=== PATIENT | male | born 1995 | race Caucasian/White ===

== ENCOUNTER 2020-03-01 17:15 | Emergency (ER) | payer SELFPAY ==
[~2020-03-01] VITALS: Ht 177.8 cm; Wt 77.3 kg
[~2020-03-01 17:15] MED LIST: BENZ1TAB10 PO; PALI234D IM; PALI3 PO
[2020-03-01] MEDS ORDERED: OLAN10TA3 PO (17:52)
[2020-03-01 18:10] LABS: BASOPHILS % (AUTO) 0.4 % (0.0-2.0); EOSINOPHILS % (AUTO) 0.2 % (1.0-6.0); HEMATOCRIT 45.8 % (41-53); HEMOGLOBIN 14.8 g/dL (13.5-17.5); LYMPHOCYTES % (AUTO) 15.9 % (22.0-44.0); MEAN CORPUSCULAR HGB CONC 32.2 G/dL (31.0-37.0); MEAN CORPUSCULAR VOLUME 87 fL (80-100); MONOCYTES # (AUTO) 0.8 K/uL (0.1-1.0); MONOCYTES % (AUTO) 6.3 % (2.0-9.0); NEUTROPHILS # (AUTO) 9.5 K/uL (1.8-7.7); NEUTROPHILS % (AUTO) 77.2 % (40.0-70.0); PLATELET COUNT (AUTO) 224 K/uL (150-450); RED BLOOD CELL COUNT(AUTO) 5.26 MIL/uL (4.50-5.90); RED CELL DISTRIBUTION WIDTH 13.2 % (11.5-14.5)
[2020-03-01 18:24] LABS: ANION GAP 10 mmol/L (8-16); CALCIUM, TOTAL 9.2 mg/dL (8.8-10.5); CARBON DIOXIDE 27 mmol/L (22-29); CHLORIDE 106 mmol/L (98-107); CREATININE 0.85 mg/dL (0.60-1.30); GLOMERULAR FILTR. RATE CALC > 60 mL/min (>60); GLUCOSE,RANDOM 98 mg/dL (70-110); POTASSIUM 3.8 mmol/L (3.5-5.1); SODIUM SERUM 143 mmol/L (136-145); UREA NITROGEN, BLOOD 10 mg/dL (7-18)
[2020-03-01 18:30] LABS: ALANINE AMINOTRANSFERASE 20 U/L (12-78); ALBUMIN 4.1 g/dL (3.4-5.0); ALKALINE PHOSPHATASE 65 U/L (46-116); ASPARTATE AMINOTRANSFERASE 14 U/L (15-37); BILIRUBIN,TOTAL 0.2 mg/dL (0.1-1.0); TOTAL PROTEIN, SERUM 7.4 g/dL (6.4-8.2)
[2020-03-01] MEDS ORDERED: LORazepam 1 MG TABLET PO ONE (19:45)
[2020-03-01] MEDS ORDERED: HALOPERIDOL 5 MG TABLET PO ONE (19:45)
[2020-03-01 19:55] LABS: AMPHET/METH SCREEN,URINE NEGATIVE (NEGATIVE); BARBITURATE SCREEN, URINE NEGATIVE (NEGATIVE); BENZODIAZEPINES SCREEN,URINE NEGATIVE (NEGATIVE); CANNABINOID SCREEN,URINE NEGATIVE (NEGATIVE); COCAINE SCREEN,URINE NEGATIVE (NEGATIVE); METHADONE SCREEN, URINE NEGATIVE (NEGATIVE); OPIATE SCREEN,URINE NEGATIVE (NEGATIVE)
[2020-03-01 19:57] LABS: PHENCYCLIDINE SCREEN,URINE NEGATIVE (NEGATIVE)
[2020-03-01 21:00] VITALS: BP 141/75
== END 2020-03-01 21:48 | disposition home or self-care (01) ==
LOC: EMS 17:15
DX: F20.9 Schizophrenia, unspecified (principal); F17.210 Nicotine dependence, cigarettes, uncomplicated; Z79.899 Other long term (current) drug therapy
CPT/HCPCS: 36415; 80053; 80307; 85025; 99284; G0480

== ENCOUNTER 2021-01-06 17:33 | Inpatient (IN) | payer MEDICAID, OTHER ==
[~2021-01-06] VITALS: Ht 177.8 cm; Wt 76.2 kg
[~2021-01-06 17:33] MED LIST changes: +OLAN10TA3 PO; -PALI3 PO; +PALI3TAB14 PO
[2021-01-06] MEDS ORDERED: FLUORESCEIN SODIUM 1 MG STRIP OD ONE (18:45)
[2021-01-06] MEDS ORDERED: PROPARACAINE HCL 0.5% 15 ML OPHTHALMIC SOLUTION OU ONE (18:45)
[2021-01-06] MEDS ORDERED: ERYTHROMYCIN 0.5% 3.5 GM TUBE OPHTHALMIC OINTMENT OU ONE (19:15)
[2021-01-06 19:48] LABS: AMPHET/METH SCREEN,URINE NEGATIVE (NEGATIVE); BARBITURATE SCREEN, URINE NEGATIVE (NEGATIVE); BENZODIAZEPINES SCREEN,URINE NEGATIVE (NEGATIVE); CANNABINOID SCREEN,URINE NEGATIVE (NEGATIVE); COCAINE SCREEN,URINE NEGATIVE (NEGATIVE); METHADONE SCREEN, URINE NEGATIVE (NEGATIVE); OPIATE SCREEN,URINE NEGATIVE (NEGATIVE); PHENCYCLIDINE SCREEN,URINE NEGATIVE (NEGATIVE)
[2021-01-06] MEDS ORDERED: OLANZapine 5 MG TABLET PO ONE (20:00)
[2021-01-06] MEDS ORDERED: LORazepam 2 MG TABLET PO ONE (20:00)
[2021-01-06 20:20] LABS: BASOPHILS % (AUTO) 0.4 % (0.0-2.0); EOSINOPHILS % (AUTO) 0.2 % (1.0-6.0); HEMATOCRIT 45.2 % (41-53); HEMOGLOBIN 15.2 g/dL (13.5-17.5); LYMPHOCYTES # (AUTO) 1.7 K/uL (1.0-4.8); LYMPHOCYTES % (AUTO) 17.5 % (22.0-44.0); MEAN CORPUSCULAR HGB CONC 33.6 G/dL (31.0-37.0); MEAN CORPUSCULAR VOLUME 86 fL (80-100); MONOCYTES # (AUTO) 0.6 K/uL (0.1-1.0); MONOCYTES % (AUTO) 5.8 % (2.0-9.0); NEUTROPHILS # (AUTO) 7.4 K/uL (1.8-7.7); NEUTROPHILS % (AUTO) 76.1 % (40.0-70.0); PLATELET COUNT (AUTO) 262 K/uL (150-450); RED BLOOD CELL COUNT(AUTO) 5.23 MIL/uL (4.50-5.90); RED CELL DISTRIBUTION WIDTH 13.6 % (11.5-14.5)
[2021-01-06 20:26] LABS: ANION GAP 8 mmol/L (8-16); CALCIUM, TOTAL 9.2 mg/dL (8.8-10.5); CARBON DIOXIDE 29 mmol/L (22-29); CHLORIDE 101 mmol/L (98-107); GLOMERULAR FILTR. RATE CALC > 60 mL/min (>60); GLUCOSE,RANDOM 106 mg/dL (70-110); POTASSIUM 3.7 mmol/L (3.5-5.1); SODIUM SERUM 138 mmol/L (136-145); UREA NITROGEN, BLOOD 7 mg/dL (7-18)
[2021-01-06 20:32] LABS: ALANINE AMINOTRANSFERASE 19 U/L (12-78); ALKALINE PHOSPHATASE 75 U/L (46-116); ASPARTATE AMINOTRANSFERASE 13 U/L (15-37); BILIRUBIN,TOTAL 0.3 mg/dL (0.1-1.0); TOTAL PROTEIN, SERUM 7.6 g/dL (6.4-8.2)
[2021-01-06 21:15] LABS: COVID AG,FIA SOURCE NASOPHARYNGEAL
[2021-01-06] MEDS: HALOPERIDOL 5 MG TABLET PO PRN (21:54)
[2021-01-07] MEDS ORDERED: PNEUMOCOCCAL VACCINE POLYVALENT 0.5 ML VIAL [PPSV23] IM ONE (00:15)
[2021-01-07] MEDS ORDERED: INFLUENZA VIRUS VACCINE QVS 2020-21 (6MO+)/PF 60 MCG/0.5 ML SYRINGE IM ONE (00:15)
[2021-01-07 00:42] VITALS: BP 117/78
[2021-01-07] MEDS: ZOLPIDEM TARTRATE 10 MG TABLET PO PRN (01:10)
[2021-01-07] MEDS: LORazepam 2 MG TABLET PO PRN (01:10)
[2021-01-07 09:28] VITALS: BP 112/68
[2021-01-07] MEDS ORDERED: ACETAMINOPHEN 325 MG TABLET PO PRN (10:30)
[2021-01-07] MEDS ORDERED: DOCUSATE SODIUM 100 MG CAPSULE PO PRN (10:30)
[2021-01-07] MEDS ORDERED: IBUPROFEN 400 MG TABLET PO PRN (10:30)
[2021-01-07] MEDS ORDERED: MAG HYDROX/AL HYDROX/SIMETH ES 30 ML SUSPENSION UDCUP PO PRN (10:30)
[2021-01-07] MEDS ORDERED: GuaiFENesin/D-METHORPHAN [SUGAR-FREE] 200-20MG/10 ML SYRUP UDCUP PO PRN (10:30)
[2021-01-07] MEDS ORDERED: PETROLATUM,WHITE 28 GM JELLY TP PRN (10:30)
[2021-01-07] MEDS ORDERED: ALBUTEROL SULFATE HFA 90 MCG/PUFF 8 GM INHALER IH PRN (10:30)
[2021-01-07] MEDS ORDERED: NICOTINE 14 MG/24 HOUR PATCH TD PRN (10:30)
[2021-01-07] MEDS ORDERED: ONDANSETRON HCL 4 MG TABLET PO PRN (10:30)
[2021-01-07] MEDS ORDERED: MAGNESIUM HYDROXIDE SUSPENSION 30 ML UDCUP PO PRN (10:30)
[2021-01-07] MEDS ORDERED: LOPERAMIDE HCL 2 MG CAPSULE PO PRN (10:30)
[2021-01-07] MEDS ORDERED: CloNIDine HCL 0.1 MG TABLET PO PRN (10:30)
[2021-01-07] MEDS: ESCITALOPRAM OXALATE 10 MG TABLET PO SCH (14:05)
[2021-01-07 16:17] VITALS: BP 116/63
[2021-01-07] MEDS: OLANZapine 10 MG TABLET PO SCH (20:44)
[2021-01-08 04:59] VITALS: BP 120/76
[2021-01-08] MEDS: ESCITALOPRAM OXALATE 10 MG TABLET PO SCH (08:11)
[2021-01-08 08:58] VITALS: BP 115/67
[2021-01-08] MEDS: OLANZapine 10 MG TABLET PO SCH ×2 (12:22→21:39)
[2021-01-08 16:27] VITALS: BP 137/84
[2021-01-09 04:25] VITALS: BP 116/72
[2021-01-09 08:10] VITALS: BP 134/81
[2021-01-09] MEDS: ESCITALOPRAM OXALATE 10 MG TABLET PO SCH (09:12)
[2021-01-09] MEDS: OLANZapine 10 MG TABLET PO SCH ×2 (09:12→20:36)
[2021-01-09 16:22] VITALS: BP 120/65
[2021-01-09] MEDS: LORazepam 2 MG TABLET PO PRN (19:34)
[2021-01-09] MEDS: HALOPERIDOL 5 MG TABLET PO PRN (19:34)
[2021-01-10 06:31] VITALS: BP 109/64
[2021-01-10 08:37] VITALS: BP 112/71
[2021-01-10] MEDS: ESCITALOPRAM OXALATE 10 MG TABLET PO SCH (09:35)
[2021-01-10] MEDS: LORazepam 2 MG TABLET PO PRN ×2 (09:35→17:01)
[2021-01-10] MEDS: OLANZapine 10 MG TABLET PO SCH ×2 (09:35→20:32)
[2021-01-10 16:34] VITALS: BP_SYST 11; BP_SYST 111; BP_DIAS 65
[2021-01-10] MEDS: HALOPERIDOL 5 MG TABLET PO PRN (17:01)
[2021-01-10] MEDS: ZOLPIDEM TARTRATE 10 MG TABLET PO PRN (20:32)
[2021-01-11 03:37] VITALS: BP 114/68
[2021-01-11 08:55] LABS: FREE T4 (FREE THYROXINE) 0.88 ng/dL (0.76-1.46); THYROID STIMULATING HORMONE 0.66 uIU/mL (0.36-3.74)
[2021-01-11 09:13] VITALS: BP 109/64
[2021-01-11] MEDS: OLANZapine 10 MG TABLET PO SCH ×2 (09:57→19:56)
[2021-01-11] MEDS: ESCITALOPRAM OXALATE 10 MG TABLET PO SCH (09:58)
[2021-01-11 17:09] VITALS: BP 110/62
[2021-01-12 06:36] VITALS: BP 120/64
[2021-01-12 08:54] VITALS: BP 137/85
[2021-01-12] MEDS: ESCITALOPRAM OXALATE 10 MG TABLET PO SCH (09:43)
[2021-01-12] MEDS: OLANZapine 10 MG TABLET PO SCH ×2 (09:43→21:11)
[2021-01-12 17:17] VITALS: BP 125/77
[2021-01-12] MEDS: ZOLPIDEM TARTRATE 10 MG TABLET PO PRN (21:11)
[2021-01-13 06:00] VITALS: BP 129/78
[2021-01-13 08:43] VITALS: BP 132/73
[2021-01-13] MEDS: ESCITALOPRAM OXALATE 10 MG TABLET PO SCH (08:57)
[2021-01-13] MEDS: OLANZapine 10 MG TABLET PO SCH ×2 (08:57→20:07)
[2021-01-13] MEDS: LORazepam 2 MG TABLET PO PRN ×2 (09:04→17:38)
[2021-01-13 16:29] VITALS: BP 104/62
[2021-01-14 05:39] VITALS: BP 127/74
[2021-01-14 08:16] VITALS: BP 117/82
[2021-01-14 08:31] LABS: COVID AG,FIA SOURCE NASOPHARYNGEAL
[2021-01-14] MEDS: OLANZapine 10 MG TABLET PO SCH ×2 (09:47→21:12)
[2021-01-14] MEDS: LORazepam 2 MG TABLET PO PRN (09:48)
[2021-01-14] MEDS: ESCITALOPRAM OXALATE 10 MG TABLET PO SCH (09:48)
[2021-01-14 16:21] VITALS: BP 100/60
[2021-01-15 01:16] VITALS: BP 121/68
[2021-01-15] MEDS: ESCITALOPRAM OXALATE 10 MG TABLET PO SCH (08:52)
[2021-01-15] MEDS: OLANZapine 10 MG TABLET PO SCH ×2 (08:52→20:14)
[2021-01-15 08:57] VITALS: BP 116/71
[2021-01-15 16:21] VITALS: BP 145/84
[2021-01-16 06:06] VITALS: BP 104/53
[2021-01-16 08:28] VITALS: BP 108/68
[2021-01-16] MEDS: ESCITALOPRAM OXALATE 10 MG TABLET PO SCH (09:06)
[2021-01-16] MEDS: OLANZapine 10 MG TABLET PO SCH ×2 (09:07→20:39)
[2021-01-16 17:32] VITALS: BP 138/75
[2021-01-17 03:50] VITALS: BP 123/68
[2021-01-17 08:42] VITALS: BP 138/92
[2021-01-17] MEDS: OLANZapine 10 MG TABLET PO SCH ×2 (10:27→21:19)
[2021-01-17] MEDS: ESCITALOPRAM OXALATE 10 MG TABLET PO SCH (10:27)
[2021-01-17 16:15] VITALS: BP 125/71
[2021-01-18 04:28] VITALS: BP 122/72
[2021-01-18] MEDS: OLANZapine 10 MG TABLET PO SCH ×2 (08:56→21:05)
[2021-01-18] MEDS: ESCITALOPRAM OXALATE 10 MG TABLET PO SCH (08:57)
[2021-01-18 09:23] VITALS: BP 117/60
[2021-01-18 17:04] VITALS: BP 132/80
[2021-01-19 05:10] VITALS: BP 124/74
[2021-01-19 08:36] VITALS: BP 109/63
[2021-01-19] MEDS: OLANZapine 10 MG TABLET PO SCH (08:54)
[2021-01-19] MEDS: ESCITALOPRAM OXALATE 10 MG TABLET PO SCH (08:55)
[2021-01-19] MEDS ORDERED: OLAN10TA3 PO (13:45)
[2021-01-19] MEDS ORDERED: ESCI-8 PO (13:46)
[2021-01-19] MEDS: LORazepam 2 MG TABLET PO PRN (16:49)
[2021-01-19 17:05] VITALS: BP 140/79
== END 2021-01-19 17:00 | disposition home or self-care (01) | DRG 750 ==
LOC: EMS 17:35 → B3A 19:25 → EMS 23:34
PROVIDERS: ADMIT Psychiatry & Neurology Child & Adolescent Psychiatry; ATTEND Psychiatry & Neurology Child & Adolescent Psychiatry
DX: F25.1 Schizoaffective disorder, depressive type (principal); R45.851 Suicidal ideations; Z91.19 Patient's noncompliance with other medical treatment and regimen; Z59.0 Homelessness; F41.9 Anxiety disorder, unspecified; G47.00 Insomnia, unspecified; K59.00 Constipation, unspecified; J45.909 Unspecified asthma, uncomplicated; F31.9 Bipolar disorder, unspecified; F12.90 Cannabis use, unspecified, uncomplicated; F17.210 Nicotine dependence, cigarettes, uncomplicated; S05.02XA Injury of conjunctiva and corneal abrasion without foreign body, left eye, initial encounter; S05.01XA Injury of conjunctiva and corneal abrasion without foreign body, right eye, initial encounter; X58.XXXA Exposure to other specified factors, initial encounter; Y93.89 Activity, other specified; Y92.89 Other specified places as the place of occurrence of the external cause; Y99.8 Other external cause status
CPT/HCPCS: 84439; 84443; 87426; 90686; 90732; 99285; G0480; Q0162

== ENCOUNTER 2021-05-12 18:24 | Inpatient (IN) | payer MEDICAID, OTHER ==
[~2021-05-12] VITALS: Ht 177.8 cm; Wt 76.5 kg
[~2021-05-12 18:24] MED LIST changes: -BENZ1TAB10 PO; +ESCI-8 PO; -OLAN10TA3 PO; +OLAN10TA74 PO; -PALI234D IM; -PALI3TAB14 PO
[2021-05-12 19:16] LABS: COVID AG,FIA SOURCE NASOPHARYNGEAL
[2021-05-12 19:16] LABS: BASOPHILS % (AUTO) 0.3 % (0.0-2.0); EOSINOPHILS % (AUTO) 0.4 % (1.0-6.0); HEMOGLOBIN 12.5 g/dL (13.5-17.5); LYMPHOCYTES # (AUTO) 1.2 K/uL (1.0-4.8); MEAN CORPUSCULAR HEMOGLOBIN 28.5 pg (26.0-34.0); MEAN CORPUSCULAR HGB CONC 32.8 G/dL (31.0-37.0); MEAN CORPUSCULAR VOLUME 87 fL (80-100); MONOCYTES # (AUTO) 0.5 K/uL (0.1-1.0); MONOCYTES % (AUTO) 6.7 % (2.0-9.0); NEUTROPHILS # (AUTO) 5.7 K/uL (1.8-7.7); NEUTROPHILS % (AUTO) 76.6 % (40.0-70.0); PLATELET COUNT (AUTO) 218 K/uL (150-450); RED BLOOD CELL COUNT(AUTO) 4.37 MIL/uL (4.50-5.90); RED CELL DISTRIBUTION WIDTH 13.3 % (11.5-14.5)
[2021-05-12 19:26] LABS: ANION GAP 4 mmol/L (8-16); CALCIUM, TOTAL 8.3 mg/dL (8.8-10.5); CARBON DIOXIDE 27 mmol/L (22-29); CHLORIDE 110 mmol/L (98-107); CREATININE 0.71 mg/dL (0.60-1.30); GLOMERULAR FILTR. RATE CALC > 60 mL/min (>60); GLUCOSE,RANDOM 86 mg/dL (70-110); POTASSIUM 3.9 mmol/L (3.5-5.1); SODIUM SERUM 141 mmol/L (136-145); UREA NITROGEN, BLOOD 4 mg/dL (7-18)
[2021-05-12 19:33] LABS: ALANINE AMINOTRANSFERASE 22 U/L (12-78); ALBUMIN 3.3 g/dL (3.4-5.0); ALKALINE PHOSPHATASE 60 U/L (46-116); ASPARTATE AMINOTRANSFERASE 18 U/L (15-37); BILIRUBIN,TOTAL 0.2 mg/dL (0.1-1.0); TOTAL PROTEIN, SERUM 6.3 g/dL (6.4-8.2)
[2021-05-13 00:32] VITALS: BP 125/75
[2021-05-13 10:19] VITALS: BP 106/59
[2021-05-13 16:00] VITALS: BP 118/66
[2021-05-13] MEDS ORDERED: LOPERAMIDE HCL 2 MG CAPSULE PO PRN (17:30)
[2021-05-13] MEDS ORDERED: OMEPRAZOLE 20 MG CAPSULE PO PRN (17:30)
[2021-05-13] MEDS ORDERED: PETROLATUM,WHITE 28 GM JELLY TP PRN (17:30)
[2021-05-13] MEDS ORDERED: BENZOCAINE/MENTHOL LOZENGE PO PRN (17:30)
[2021-05-13] MEDS ORDERED: MAG HYDROX/AL HYDROX/SIMETH ES 30 ML SUSPENSION UDCUP PO PRN (17:30)
[2021-05-13] MEDS ORDERED: MAGNESIUM HYDROXIDE SUSPENSION 30 ML UDCUP PO PRN (17:30)
[2021-05-13] MEDS ORDERED: DOCUSATE SODIUM 100 MG CAPSULE PO PRN (17:30)
[2021-05-13] MEDS ORDERED: BACITRACIN 28 GM OINTMENT TP PRN (17:30)
[2021-05-13] MEDS ORDERED: ALBUTEROL SULFATE HFA 90 MCG/PUFF 8 GM INHALER IH PRN (17:30)
[2021-05-13] MEDS ORDERED: CloNIDine HCL 0.1 MG TABLET PO PRN (17:30)
[2021-05-14 08:32] VITALS: BP 117/89
[2021-05-14 10:17] LABS: CHOL/HDL RATIO 19.3 (4.2-7.3)
[2021-05-14] MEDS: LORazepam 2 MG TABLET PO PRN (14:40)
[2021-05-14 16:47] VITALS: BP 98/61
[2021-05-14 21:02] VITALS: BP 113/68
[2021-05-14] MEDS: OLANZapine 10 MG TABLET PO SCH (21:30)
[2021-05-15 08:00] VITALS: BP 95/50
[2021-05-15 17:04] VITALS: BP 121/76
[2021-05-15] MEDS: OLANZapine 10 MG TABLET PO SCH (20:10)
[2021-05-15] MEDS: ONDANSETRON HCL 4 MG TABLET PO PRN (20:10)
[2021-05-16 08:22] VITALS: BP 107/65
[2021-05-16] MEDS: ACETAMINOPHEN 325 MG TABLET PO PRN (16:26)
[2021-05-16 16:27] VITALS: BP 109/72
[2021-05-16] MEDS: ONDANSETRON HCL 4 MG TABLET PO PRN (18:10)
[2021-05-16] MEDS: OLANZapine 10 MG TABLET PO SCH (20:14)
[2021-05-17 08:26] VITALS: BP 117/56
[2021-05-17] MEDS: LORazepam 2 MG TABLET PO PRN (12:14)
[2021-05-17 17:13] VITALS: BP 113/65
[2021-05-17] MEDS: OLANZapine 10 MG TABLET PO SCH (20:18)
[2021-05-18 16:00] VITALS: BP 125/78
[2021-05-18] MEDS: OLANZapine 10 MG TABLET PO SCH (20:16)
[2021-05-18] MEDS: IBUPROFEN 600 MG TABLET PO PRN (21:27)
[2021-05-19 08:00] VITALS: BP 111/61
[2021-05-19 17:04] VITALS: BP 152/76
[2021-05-19] MEDS: LORazepam 2 MG TABLET PO PRN (19:32)
[2021-05-19] MEDS: OLANZapine 10 MG TABLET PO SCH (20:11)
[2021-05-20 09:13] VITALS: BP 93/53
[2021-05-20 16:32] VITALS: BP 120/75
[2021-05-20] MEDS: OLANZapine 10 MG TABLET PO SCH (20:15)
[2021-05-21 08:13] VITALS: BP 124/70
[2021-05-21 15:09] LABS: COVID AG,FIA SOURCE NASOPHARYNGEAL
[2021-05-21 16:30] VITALS: BP 117/63
[2021-05-21] MEDS: OLANZapine 10 MG TABLET PO SCH (21:06)
[2021-05-21] MEDS: LORazepam 2 MG TABLET PO PRN (21:06)
[2021-05-22 16:00] VITALS: BP 114/54
[2021-05-22] MEDS: LORazepam 2 MG TABLET PO PRN (16:41)
[2021-05-22] MEDS: HALOPERIDOL 5 MG TABLET PO PRN (16:41)
[2021-05-22] MEDS: ZOLPIDEM TARTRATE 10 MG TABLET PO PRN (21:01)
[2021-05-22] MEDS: OLANZapine 10 MG TABLET PO SCH (21:01)
[2021-05-23 16:00] VITALS: BP 131/71
[2021-05-23] MEDS: HALOPERIDOL 5 MG TABLET PO PRN (16:39)
[2021-05-23] MEDS: LORazepam 2 MG TABLET PO PRN (20:54)
[2021-05-23] MEDS: OLANZapine 10 MG TABLET PO SCH (20:54)
[2021-05-24 09:18] VITALS: BP 102/60
[2021-05-24 16:00] VITALS: BP 138/72
[2021-05-24] MEDS: HALOPERIDOL 5 MG TABLET PO PRN (16:22)
[2021-05-24] MEDS: ZOLPIDEM TARTRATE 10 MG TABLET PO PRN (20:50)
[2021-05-24] MEDS: OLANZapine 10 MG TABLET PO SCH (20:50)
[2021-05-25 08:49] VITALS: BP 113/70
[2021-05-25] MEDS ORDERED: OLAN10TA74 PO (11:07)
[2021-05-25] MEDS: IBUPROFEN 600 MG TABLET PO PRN (12:30)
[2021-05-25] MEDS: ACETAMINOPHEN 325 MG TABLET PO PRN (15:39)
[2021-05-25 16:00] VITALS: BP 132/79
== END 2021-05-25 16:15 | disposition home or self-care (01) | DRG 750 ==
LOC: EMS 18:44 → 3EC 22:10
PROVIDERS: ADMIT Psychiatry & Neurology Psychiatry; ATTEND Psychiatry & Neurology Psychiatry
DX: F20.0 Paranoid schizophrenia (principal); R45.851 Suicidal ideations; E44.1 Mild protein-calorie malnutrition; K59.00 Constipation, unspecified; Z20.822 Contact with and (suspected) exposure to COVID-19; G47.00 Insomnia, unspecified; J45.909 Unspecified asthma, uncomplicated; F41.9 Anxiety disorder, unspecified; F31.9 Bipolar disorder, unspecified; F12.90 Cannabis use, unspecified, uncomplicated; F17.210 Nicotine dependence, cigarettes, uncomplicated; Z68.24 Body mass index [BMI] 24.0-24.9, adult
CPT/HCPCS: 80053; 80061; 85025; 99285; G0480; Q0162

== ENCOUNTER 2021-07-05 18:58 | Inpatient (IN) | payer MEDICAID, OTHER ==
[~2021-07-05] VITALS: Ht 177.8 cm; Wt 81.2 kg
[~2021-07-05 18:58] MED LIST changes: -ESCI-8 PO
[2021-07-05 21:11] LABS: COVID AG,FIA SOURCE NASOPHARYNGEAL
[2021-07-05 21:14] LABS: BASOPHILS % (AUTO) 0.5 % (0.0-2.0); EOSINOPHILS % (AUTO) 1.3 % (1.0-6.0); HEMATOCRIT 43.7 % (41-53); HEMOGLOBIN 14.2 g/dL (13.5-17.5); LYMPHOCYTES # (AUTO) 1.9 K/uL (1.0-4.8); LYMPHOCYTES % (AUTO) 21.9 % (22.0-44.0); MEAN CORPUSCULAR HEMOGLOBIN 28.8 pg (26.0-34.0); MEAN CORPUSCULAR HGB CONC 32.5 G/dL (31.0-37.0); MEAN CORPUSCULAR VOLUME 89 fL (80-100); MONOCYTES # (AUTO) 0.8 K/uL (0.1-1.0); MONOCYTES % (AUTO) 9.7 % (2.0-9.0); NEUTROPHILS # (AUTO) 5.7 K/uL (1.8-7.7); NEUTROPHILS % (AUTO) 66.6 % (40.0-70.0); PLATELET COUNT (AUTO) 210 K/uL (150-450); RED BLOOD CELL COUNT(AUTO) 4.93 MIL/uL (4.50-5.90); RED CELL DISTRIBUTION WIDTH 13.1 % (11.5-14.5)
[2021-07-05 21:23] LABS: ANION GAP 9 mmol/L (8-16); CALCIUM, TOTAL 9.1 mg/dL (8.8-10.5); CARBON DIOXIDE 26 mmol/L (22-29); CHLORIDE 106 mmol/L (98-107); CREATININE 0.74 mg/dL (0.60-1.30); GLOMERULAR FILTR. RATE CALC > 60 mL/min (>60); GLUCOSE,RANDOM 90 mg/dL (70-110); POTASSIUM 3.7 mmol/L (3.5-5.1); SODIUM SERUM 141 mmol/L (136-145); UREA NITROGEN, BLOOD 4 mg/dL (7-18)
[2021-07-05 21:29] LABS: ALANINE AMINOTRANSFERASE 24 U/L (12-78); ALBUMIN 3.9 g/dL (3.4-5.0); ALKALINE PHOSPHATASE 64 U/L (46-116); ASPARTATE AMINOTRANSFERASE 17 U/L (15-37); BILIRUBIN,TOTAL 0.3 mg/dL (0.1-1.0); TOTAL PROTEIN, SERUM 7.6 g/dL (6.4-8.2)
[2021-07-05 21:55] LABS: AMPHET/METH SCREEN,URINE NEGATIVE (NEGATIVE); BARBITURATE SCREEN, URINE NEGATIVE (NEGATIVE); BENZODIAZEPINES SCREEN,URINE NEGATIVE (NEGATIVE); CANNABINOID SCREEN,URINE NEGATIVE (NEGATIVE); COCAINE SCREEN,URINE NEGATIVE (NEGATIVE); METHADONE SCREEN, URINE NEGATIVE (NEGATIVE); OPIATE SCREEN,URINE NEGATIVE (NEGATIVE)
[2021-07-05 21:56] LABS: PHENCYCLIDINE SCREEN,URINE NEGATIVE (NEGATIVE)
[2021-07-05] MEDS ORDERED: HALOPERIDOL 5 MG TABLET PO PRN (23:15)
[2021-07-05] MEDS ORDERED: ACETAMINOPHEN 650 MG/20.3 ML SOLUTION UDCUP PO ONE (23:30)
[2021-07-05] MEDS ORDERED: ACETAMINOPHEN 500 MG TABLET PO ONE (23:30)
[2021-07-05] MEDS: LORazepam 2 MG TABLET PO PRN (23:33)
[2021-07-06] MEDS ORDERED: MAG HYDROX/AL HYDROX/SIMETH ES 30 ML SUSPENSION UDCUP PO PRN (06:15)
[2021-07-06] MEDS ORDERED: LOPERAMIDE HCL 2 MG CAPSULE PO PRN (06:15)
[2021-07-06] MEDS ORDERED: MAGNESIUM HYDROXIDE SUSPENSION 30 ML UDCUP PO PRN (06:15)
[2021-07-06] MEDS ORDERED: ALBUTEROL SULFATE HFA 90 MCG/PUFF 8 GM INHALER IH PRN (06:15)
[2021-07-06] MEDS ORDERED: CloNIDine HCL 0.1 MG TABLET PO PRN (06:15)
[2021-07-06] MEDS ORDERED: ONDANSETRON HCL 4 MG TABLET PO PRN (06:15)
[2021-07-06] MEDS ORDERED: GuaiFENesin/D-METHORPHAN [SUGAR-FREE] 200-20MG/10 ML SYRUP UDCUP PO PRN (06:15)
[2021-07-06] MEDS ORDERED: DOCUSATE SODIUM 100 MG CAPSULE PO PRN (06:15)
[2021-07-06] MEDS ORDERED: NICOTINE 14 MG/24 HOUR PATCH TD PRN (06:15)
[2021-07-06] MEDS ORDERED: PETROLATUM,WHITE 28 GM JELLY TP PRN (06:15)
[2021-07-06 08:34] VITALS: BP 109/60
[2021-07-06 08:59] LABS: CHOL/HDL RATIO 2.3 (4.2-7.3)
[2021-07-06] MEDS ORDERED: OLANZapine 5 MG RAPDIS TABLET PO SCH (12:00)
[2021-07-06 16:18] VITALS: BP 119/79
[2021-07-06] MEDS: OLANZapine 5 MG RAPDIS TABLET PO SCH (20:18)
[2021-07-07 08:19] VITALS: BP 105/59
[2021-07-07] MEDS: IBUPROFEN 400 MG TABLET PO PRN (12:05)
[2021-07-07 17:00] VITALS: BP 117/60
[2021-07-07 19:58] VITALS: BP 120/70
[2021-07-07] MEDS: ACETAMINOPHEN 325 MG TABLET PO PRN (19:58)
[2021-07-07] MEDS: OLANZapine 5 MG RAPDIS TABLET PO SCH (20:18)
[2021-07-07] MEDS: ZOLPIDEM TARTRATE 10 MG TABLET PO PRN (23:28)
[2021-07-08 08:18] VITALS: BP 112/64
[2021-07-08 17:00] VITALS: BP 123/81
[2021-07-08] MEDS: OLANZapine 5 MG RAPDIS TABLET PO SCH (20:28)
[2021-07-09 16:19] VITALS: BP 132/92
[2021-07-09] MEDS: LORazepam 2 MG TABLET PO PRN (16:26)
[2021-07-09] MEDS: OLANZapine 5 MG RAPDIS TABLET PO SCH (20:07)
[2021-07-09] MEDS: IBUPROFEN 400 MG TABLET PO PRN (20:09)
[2021-07-10 08:15] VITALS: BP 108/58
[2021-07-10] MEDS: LORazepam 2 MG TABLET PO PRN (16:05)
[2021-07-10 16:09] VITALS: BP 125/78
[2021-07-10] MEDS: ACETAMINOPHEN 325 MG TABLET PO PRN (17:11)
[2021-07-10] MEDS: OLANZapine 5 MG RAPDIS TABLET PO SCH (20:48)
[2021-07-10] MEDS: ZOLPIDEM TARTRATE 10 MG TABLET PO PRN (20:50)
[2021-07-11 08:19] VITALS: BP 104/61
[2021-07-11] MEDS: SERTRALINE HCL 50 MG TABLET PO SCH (11:38)
[2021-07-11] MEDS: LORazepam 2 MG TABLET PO PRN (16:04)
[2021-07-11 16:37] VITALS: BP 106/70
[2021-07-11] MEDS: OLANZapine 5 MG RAPDIS TABLET PO SCH (21:00)
[2021-07-11] MEDS: ZOLPIDEM TARTRATE 10 MG TABLET PO PRN (22:25)
[2021-07-12 08:15] VITALS: BP 104/62
[2021-07-12] MEDS: SERTRALINE HCL 50 MG TABLET PO SCH (08:20)
[2021-07-12] MEDS ORDERED: OLAN10TA74 PO (12:00)
[2021-07-12] MEDS ORDERED: SERT-439 PO (12:00)
[2021-07-12] MEDS: ACETAMINOPHEN 325 MG TABLET PO PRN (12:04)
== END 2021-07-12 18:30 | disposition home or self-care (01) | DRG 750 ==
LOC: EMS 19:15 → 3EC 07-06 01:24
DX: F25.1 Schizoaffective disorder, depressive type (principal); R45.851 Suicidal ideations; Z59.0 Homelessness; F31.9 Bipolar disorder, unspecified; I10 Essential (primary) hypertension; J45.909 Unspecified asthma, uncomplicated; Z20.822 Contact with and (suspected) exposure to COVID-19; F15.90 Other stimulant use, unspecified, uncomplicated; Z79.899 Other long term (current) drug therapy; Z87.891 Personal history of nicotine dependence
CPT/HCPCS: 80053; 80061; 85025; 99285; G0480; J3535

== ENCOUNTER 2022-04-06 19:01 | Emergency (ER) | payer MEDICAID, OTHER ==
[~2022-04-06] VITALS: Ht 177.8 cm; Wt 70.5 kg
[~2022-04-06 19:01] MED LIST changes: +SERT-439 PO
[2022-04-06 19:32] VITALS: BP 129/78
[2022-04-06 20:12] LABS: BASOPHILS % (AUTO) 0.4 % (0.0-2.0); EOSINOPHILS % (AUTO) 0.8 % (1.0-6.0); HEMATOCRIT 39.3 % (41-53); HEMOGLOBIN 13.3 g/dL (13.5-17.5); LYMPHOCYTES # (AUTO) 1.7 K/uL (1.0-4.8); LYMPHOCYTES % (AUTO) 23.9 % (22.0-44.0); MEAN CORPUSCULAR HEMOGLOBIN 29.3 pg (26.0-34.0); MEAN CORPUSCULAR HGB CONC 33.7 G/dL (31.0-37.0); MEAN CORPUSCULAR VOLUME 87 fL (80-100); MONOCYTES # (AUTO) 0.5 K/uL (0.1-1.0); MONOCYTES % (AUTO) 7.5 % (2.0-9.0); NEUTROPHILS # (AUTO) 4.7 K/uL (1.8-7.7); NEUTROPHILS % (AUTO) 67.4 % (40.0-70.0); PLATELET COUNT (AUTO) 193 K/uL (150-450); RED BLOOD CELL COUNT(AUTO) 4.53 MIL/uL (4.50-5.90); RED CELL DISTRIBUTION WIDTH 13.6 % (11.5-14.5)
[2022-04-06 20:20] LABS: ANION GAP 7 mmol/L (8-16); CARBON DIOXIDE 27 mmol/L (22-29); CHLORIDE 105 mmol/L (98-107); GLOMERULAR FILTR. RATE CALC > 60 mL/min (>60); GLUCOSE,RANDOM 77 mg/dL (70-110); POTASSIUM 3.7 mmol/L (3.5-5.1); SODIUM SERUM 139 mmol/L (136-145); UREA NITROGEN, BLOOD 9 mg/dL (7-18)
[2022-04-06 20:26] LABS: ALANINE AMINOTRANSFERASE 16 U/L (12-78); ALBUMIN 3.8 g/dL (3.4-5.0); ALKALINE PHOSPHATASE 60 U/L (46-116); ASPARTATE AMINOTRANSFERASE 12 U/L (15-37); BILIRUBIN,TOTAL 0.4 mg/dL (0.1-1.0); TOTAL PROTEIN, SERUM 6.8 g/dL (6.4-8.2)
[2022-04-06 20:28] LABS: COVID AG,FIA SOURCE NASOPHARYNGEAL
[2022-04-06 20:48] LABS: INFLUENZA TYPE A NEGATIVE FOR TYPE A (NEGATIVE); INFLUENZA TYPE B NEGATIVE FOR TYPE B (NEGATIVE)
== END 2022-04-06 22:18 | disposition home or self-care (01) ==
LOC: EMS 19:01
DX: F25.9 Schizoaffective disorder, unspecified (principal); F31.9 Bipolar disorder, unspecified; F17.210 Nicotine dependence, cigarettes, uncomplicated; F12.90 Cannabis use, unspecified, uncomplicated; F15.90 Other stimulant use, unspecified, uncomplicated; Z86.59 Personal history of other mental and behavioral disorders; Z20.822 Contact with and (suspected) exposure to COVID-19
CPT/HCPCS: 36415; 80053; 85025; 87426; 87804; 99283; G0480

== ENCOUNTER 2022-06-19 18:27 | Emergency (ER) | payer OTHER ==
[~2022-06-19] VITALS: Ht 177.8 cm; Wt 72.7 kg
[2022-06-19 22:19] LABS: BASOPHILS % (AUTO) 0.2 % (0.0-2.0); EOSINOPHILS % (AUTO) 0.1 % (1.0-6.0); HEMATOCRIT 40.1 % (41-53); HEMOGLOBIN 13.6 g/dL (13.5-17.5); LYMPHOCYTES # (AUTO) 0.9 K/uL (1.0-4.8); LYMPHOCYTES % (AUTO) 7.9 % (22.0-44.0); MEAN CORPUSCULAR HEMOGLOBIN 29.3 pg (26.0-34.0); MEAN CORPUSCULAR HGB CONC 33.9 G/dL (31.0-37.0); MEAN CORPUSCULAR VOLUME 86 fL (80-100); MONOCYTES # (AUTO) 0.6 K/uL (0.1-1.0); NEUTROPHILS # (AUTO) 10.2 K/uL (1.8-7.7); PLATELET COUNT (AUTO) 156 K/uL (150-450); RED BLOOD CELL COUNT(AUTO) 4.64 MIL/uL (4.50-5.90)
[2022-06-19 22:20] LABS: NEUTROPHILS % (AUTO) 86.8 % (40.0-70.0)
[2022-06-19 22:29] LABS: ANION GAP 3 mmol/L (8-16); CALCIUM, TOTAL 8.9 mg/dL (8.8-10.5); CARBON DIOXIDE 35 mmol/L (22-29); CHLORIDE 99 mmol/L (98-107); CREATININE 0.93 mg/dL (0.60-1.30); GLUCOSE,RANDOM 112 mg/dL (70-110); POTASSIUM 3.1 mmol/L (3.5-5.1); SODIUM SERUM 137 mmol/L (136-145); UREA NITROGEN, BLOOD 8 mg/dL (7-18)
[2022-06-19 22:33] LABS: GLOMERULAR FILTR. RATE CALC > 60 mL/min (>60)
[2022-06-19 22:34] LABS: ALANINE AMINOTRANSFERASE 13 U/L (12-78); ALBUMIN 3.4 g/dL (3.4-5.0); ALKALINE PHOSPHATASE 60 U/L (46-116); ASPARTATE AMINOTRANSFERASE 11 U/L (15-37); BILIRUBIN,TOTAL 0.3 mg/dL (0.1-1.0); LIPASE 50 U/L (73-393); TOTAL PROTEIN, SERUM 6.7 g/dL (6.4-8.2)
[2022-06-19] MEDS ORDERED: FAMOTIDINE 10 MG/ML 2 ML VIAL IVP ONE (22:45)
[2022-06-19] MEDS: POTASSIUM CHL 10 MEQ/WATER 50 ML IV SCH (23:04)
[2022-06-20] MEDS ORDERED: SODIUM CHLORIDE 0.9% 100 ML ONE (00:05)
[2022-06-20] MEDS ORDERED: IOHEXOL 350 MG/ML 100 ML VIAL ONE (00:05)
[2022-06-20] MEDS: POTASSIUM CHL 10 MEQ/WATER 50 ML IV SCH (00:08)
[2022-06-20 07:05] VITALS: BP 123/71
[2022-06-20] MEDS ORDERED: FAMO20 PO (22:38)
== END 2022-06-20 07:33 | disposition home or self-care (01) ==
LOC: EMS 18:29
DX: F15.10 Other stimulant abuse, uncomplicated (principal); R10.12 Left upper quadrant pain; F31.9 Bipolar disorder, unspecified; F20.9 Schizophrenia, unspecified; F17.210 Nicotine dependence, cigarettes, uncomplicated; F12.90 Cannabis use, unspecified, uncomplicated; Z86.59 Personal history of other mental and behavioral disorders
CPT/HCPCS: 99285; 96365; 96375; 80053; 83690; 83735; 85025; 93005; 71260; 96366; 74177; G0480; J3490; J3480; Q9967; J7050; 72193; 74160

== ENCOUNTER 2022-06-20 20:34 | Emergency (ER) | payer OTHER ==
[~2022-06-20] VITALS: Ht 177.8 cm; Wt 72.7 kg
[2022-06-20] MEDS ORDERED: PB/HYOSCY/ATR/SCOP/LIDO/MAALOX 55 ML BOTTLE PO ONE (21:15)
[2022-06-20] MEDS ORDERED: FAMO20 PO (22:38)
[2022-06-20 22:49] VITALS: BP 130/70
== END 2022-06-20 22:50 | disposition home or self-care (01) ==
LOC: EMS 20:34
DX: K21.9 Gastro-esophageal reflux disease without esophagitis (principal); F19.10 Other psychoactive substance abuse, uncomplicated; F20.9 Schizophrenia, unspecified; F17.210 Nicotine dependence, cigarettes, uncomplicated; F12.90 Cannabis use, unspecified, uncomplicated; F15.90 Other stimulant use, unspecified, uncomplicated; Z86.59 Personal history of other mental and behavioral disorders
CPT/HCPCS: 99283

== ENCOUNTER 2022-09-20 01:32 | Emergency (ER) | payer OTHER ==
[~2022-09-20] VITALS: Ht 182.9 cm; Wt 72.0 kg
[~2022-09-20 01:32] MED LIST changes: +FAMO20 PO
[2022-09-20 01:54] VITALS: BP 97/61
[2022-09-20] MEDS ORDERED: ERYTHROMYCIN 0.5% 3.5 GM TUBE OPHTHALMIC OINTMENT OD ONE (02:30)
[2022-09-20] MEDS ORDERED: IBUPROFEN 600 MG TABLET PO ONE (02:30)
== END 2022-09-20 02:32 | disposition home or self-care (01) ==
LOC: EMS 01:33
DX: S20.222A Contusion of left back wall of thorax, initial encounter (principal); H10.31 Unspecified acute conjunctivitis, right eye; H01.003 Unspecified blepharitis right eye, unspecified eyelid; M54.9 Dorsalgia, unspecified; F20.9 Schizophrenia, unspecified; F31.9 Bipolar disorder, unspecified; F12.90 Cannabis use, unspecified, uncomplicated; F15.10 Other stimulant abuse, uncomplicated; F17.210 Nicotine dependence, cigarettes, uncomplicated; W19.XXXA Unspecified fall, initial encounter; Y93.89 Activity, other specified; Y92.89 Other specified places as the place of occurrence of the external cause; Y99.8 Other external cause status
CPT/HCPCS: 99283

== ENCOUNTER 2022-10-13 22:02 | Emergency (ER) | payer OTHER ==
[~2022-10-13] VITALS: Ht 170.2 cm; Wt 63.6 kg
[2022-10-13] MEDS ORDERED: PredniSONE 20 MG TABLET PO ONE (23:00)
[2022-10-13] MEDS ORDERED: DiphenhydrAMINE HCL 25 MG CAPSULE PO ONE (23:00)
[2022-10-14] MEDS ORDERED: PRED-554 PO (00:37)
[2022-10-14 01:03] VITALS: BP 124/73
== END 2022-10-14 01:08 | disposition home or self-care (01) ==
LOC: EMS 22:02
DX: H10.13 Acute atopic conjunctivitis, bilateral (principal); F31.9 Bipolar disorder, unspecified; F20.9 Schizophrenia, unspecified; F17.210 Nicotine dependence, cigarettes, uncomplicated; F12.90 Cannabis use, unspecified, uncomplicated; F15.90 Other stimulant use, unspecified, uncomplicated
CPT/HCPCS: 99283; J7512

== ENCOUNTER 2023-10-24 14:15 | Emergency (ER) | payer OTHER ==
[~2023-10-24] VITALS: Ht 175.3 cm; Wt 63.6 kg
[~2023-10-24 14:15] MED LIST changes: +PRED-554 PO
[2023-10-24 14:25] VITALS: TEMP 98.3
[2023-10-24 15:48] LABS: BASOPHILS % (AUTO) 0.2 % (0.0-2.0); EOSINOPHILS % (AUTO) 0.2 % (1.0-6.0); HEMATOCRIT 39.7 % (41-53); HEMOGLOBIN 13.5 g/dL (13.5-17.5); LYMPHOCYTES # (AUTO) 1.8 K/uL (1.0-4.8); LYMPHOCYTES % (AUTO) 13.5 % (22.0-44.0); MEAN CORPUSCULAR HEMOGLOBIN 29.7 pg (26.0-34.0); MEAN CORPUSCULAR VOLUME 87 fL (80-100); MONOCYTES # (AUTO) 0.7 K/uL (0.1-1.0); MONOCYTES % (AUTO) 5.3 % (2.0-9.0); NEUTROPHILS # (AUTO) 10.9 K/uL (1.8-7.7); NEUTROPHILS % (AUTO) 80.8 % (40.0-70.0); PLATELET COUNT (AUTO) 286 K/uL (150-450); RED BLOOD CELL COUNT(AUTO) 4.54 MIL/uL (4.50-5.90); RED CELL DISTRIBUTION WIDTH 13.6 % (11.5-14.5); WHITE BLOOD COUNT (AUTO) 13.5 K/uL (4.5-11.0)
[2023-10-24 15:59] LABS: ANION GAP 7 mmol/L (8-16); CALCIUM, TOTAL 9.3 mg/dL (8.8-10.5); CARBON DIOXIDE 32 mmol/L (22-29); CHLORIDE 103 mmol/L (98-107); CREATININE 0.72 mg/dL (0.60-1.30); GLOMERULAR FILTR. RATE CALC > 60 mL/min (>60); GLUCOSE,RANDOM 89 mg/dL (70-110); POTASSIUM 4.1 mmol/L (3.5-5.1); SODIUM SERUM 142 mmol/L (136-145); UREA NITROGEN, BLOOD 4 mg/dL (7-18)
[2023-10-24 16:04] LABS: ALANINE AMINOTRANSFERASE 12 U/L (12-78); ALBUMIN 3.8 g/dL (3.4-5.0); ALKALINE PHOSPHATASE 78 U/L (46-116); ASPARTATE AMINOTRANSFERASE 13 U/L (15-37); BILIRUBIN,TOTAL 0.2 mg/dL (0.1-1.0)
[2023-10-24] MEDS ORDERED: GENTAMICIN SULFATE 0.3% OPHTHALMIC SOLUTION 5 ML OU ONE (16:15)
[2023-10-24] MEDS ORDERED: ACETAMINOPHEN 500 MG TABLET PO ONE (16:15)
[2023-10-24] MEDS ORDERED: ACET-66 PO (16:45)
[2023-10-24] MEDS ORDERED: IBUP-1554 PO (16:45)
[2023-10-24] MEDS ORDERED: CEPH-558 PO (16:45)
[2023-10-24] MEDS ORDERED: CEPHALEXIN MONOHYDRATE 500 MG CAPSULE PO ONE (16:45)
[2023-10-24 17:00] VITALS: BP 100/60; PULSE 98; RESP 12
[2023-10-24 17:04] LABS: ALCOHOL, BLOOD (SERUM) < 3 mg/dL (0-10)
== END 2023-10-24 17:42 | disposition home or self-care (01) ==
LOC: EMS 14:22
DX: S00.83XA Contusion of other part of head, initial encounter (principal); S20.211A Contusion of right front wall of thorax, initial encounter; H10.33 Unspecified acute conjunctivitis, bilateral; F20.9 Schizophrenia, unspecified; F31.9 Bipolar disorder, unspecified; F17.210 Nicotine dependence, cigarettes, uncomplicated; F12.90 Cannabis use, unspecified, uncomplicated; F15.90 Other stimulant use, unspecified, uncomplicated; Y04.8XXA Assault by other bodily force, initial encounter; Y93.89 Activity, other specified; Y92.89 Other specified places as the place of occurrence of the external cause; Y99.8 Other external cause status
CPT/HCPCS: 99284; 80053; 85025; G0480

== ENCOUNTER 2024-05-01 17:21 | Inpatient (IN) | payer MEDICAID, OTHER ==
[~2024-05-01] VITALS: Ht 175.3 cm; Wt 70.0 kg
[~2024-05-01 17:21] MED LIST changes: +ACET-66 PO; +CEPH-558 PO; +IBUP-1554 PO
[2024-05-01 18:09] LABS: BASOPHILS % (AUTO) 0.4 % (0.0-2.0); EOSINOPHILS % (AUTO) 0.4 % (1.0-6.0); HEMOGLOBIN 12.7 g/dL (13.5-17.5); LYMPHOCYTES # (AUTO) 1.9 K/uL (1.0-4.8); LYMPHOCYTES % (AUTO) 23.9 % (22.0-44.0); MEAN CORPUSCULAR HEMOGLOBIN 29.5 pg (26.0-34.0); MEAN CORPUSCULAR HGB CONC 32.5 G/dL (31.0-37.0); MEAN CORPUSCULAR VOLUME 91 fL (80-100); MONOCYTES # (AUTO) 0.6 K/uL (0.1-1.0); MONOCYTES % (AUTO) 7.2 % (2.0-9.0); NEUTROPHILS # (AUTO) 5.4 K/uL (1.8-7.7); NEUTROPHILS % (AUTO) 68.1 % (40.0-70.0); PLATELET COUNT (AUTO) 175 K/uL (150-450); RED BLOOD CELL COUNT(AUTO) 4.31 MIL/uL (4.50-5.90); RED CELL DISTRIBUTION WIDTH 13.5 % (11.5-14.5)
[2024-05-01 18:10] LABS: COVID AG,FIA SOURCE NPH
[2024-05-01 18:52] LABS: ANION GAP 8 mmol/L (8-16); CALCIUM, TOTAL 8.8 mg/dL (8.8-10.5); CARBON DIOXIDE 27 mmol/L (22-29); CHLORIDE 106 mmol/L (98-107); CREATININE 0.92 mg/dL (0.60-1.30); GLOMERULAR FILTR. RATE CALC > 60 mL/min (>60); GLUCOSE,RANDOM 104 mg/dL (70-110); POTASSIUM 3.9 mmol/L (3.5-5.1); SODIUM SERUM 141 mmol/L (136-145); UREA NITROGEN, BLOOD 10 mg/dL (7-18)
[2024-05-01] MEDS: OLANZapine 5 MG RAPDIS TABLET PO ONE (18:52)
[2024-05-01] MEDS: QUEtiapine FUMARATE 100 MG TABLET PO PRN (18:52)
[2024-05-01 19:03] LABS: ALCOHOL, BLOOD (SERUM) < 3 mg/dL (0-10)
[2024-05-01 19:13] LABS: APPEARANCE,URINE HAZY (CLEAR); BILIRUBIN,URINE NEGATIVE (NEGATIVE); COLOR,URINE LIGHT YELLOW (YELLOW); GLUCOSE, URINE (UA) NEGATIVE (NEGATIVE); KETONES,URINE NEGATIVE (NEGATIVE); LEUKOCYTE ESTERASE ,URINE NEGATIVE (NEGATIVE); NITRATE,URINE NEGATIVE (NEGATIVE); OCCULT BLOOD,URINE NEGATIVE (NEGATIVE); PROTEIN,URINE NEGATIVE (NEGATIVE); SPECIFIC GRAVITIY, URINE 1.017 (1.003-1.030); UROBILINOGEN,URINE <=1.0 mg/dL (<=1.0)
[2024-05-01 19:17] LABS: SARS-COV2 (COVID) ANTIGEN,FIA Negative (Negative)
[2024-05-01 19:23] LABS: ALCOHOL, URINE DRUG SCREEN NEGATIVE (NEGATIVE); AMPHET/METH SCREEN,URINE NEGATIVE (NEGATIVE); BARBITURATE SCREEN, URINE NEGATIVE (NEGATIVE); BENZODIAZEPINES SCREEN,URINE NEGATIVE (NEGATIVE); CANNABINOID SCREEN,URINE POSITIVE (NEGATIVE); COCAINE SCREEN,URINE NEGATIVE (NEGATIVE); METHADONE SCREEN, URINE NEGATIVE (NEGATIVE); OPIATE SCREEN,URINE NEGATIVE (NEGATIVE); PHENCYCLIDINE SCREEN,URINE NEGATIVE (NEGATIVE)
[2024-05-02 00:28] VITALS: TEMP 97.5
[2024-05-02 00:29] VITALS: BP 126/74; PULSE 77; RESP 17; TEMP 97.5; O2SAT 97
[2024-05-02 09:05] VITALS: BP 119/88; PULSE 72; RESP 18; TEMP 97.5; O2SAT 99
[2024-05-02 10:44] VITALS: TEMP 97.5
[2024-05-02] MEDS: LORazepam 2 MG TABLET PO PRN (11:23)
[2024-05-02 20:25] VITALS: BP 108/58; PULSE 63; RESP 18; TEMP 98; O2SAT 99
[2024-05-02] MEDS: OLANZapine 7.5 MG TABLET PO SCH (21:18)
[2024-05-03 08:34] VITALS: BP 120/66; PULSE 65; RESP 16; TEMP 97.9; O2SAT 100
[2024-05-03] MEDS: SERTRALINE HCL 50 MG TABLET PO SCH (08:39)
[2024-05-03 10:21] VITALS: TEMP 97.9
[2024-05-03 21:08] VITALS: BP 116/80; PULSE 98; RESP 18; TEMP 97.7; O2SAT 98
[2024-05-03] MEDS ORDERED: LOPERAMIDE HCL 2 MG CAPSULE PO PRN (21:30)
[2024-05-03] MEDS ORDERED: MAGNESIUM HYDROXIDE SUSPENSION 30 ML UDCUP PO PRN (21:30)
[2024-05-03] MEDS ORDERED: OMEPRAZOLE 20 MG CAPSULE PO PRN (21:30)
[2024-05-03] MEDS ORDERED: DOCUSATE SODIUM 100 MG CAPSULE PO PRN (21:30)
[2024-05-03] MEDS ORDERED: PETROLATUM,WHITE 28 GM JELLY TP PRN (21:30)
[2024-05-03] MEDS ORDERED: MAG HYDROX/ALUMINUM HYD/SIMETH ES 30 ML SUSPENSION UDCUP PO PRN (21:30)
[2024-05-03] MEDS ORDERED: ACETAMINOPHEN 325 MG TABLET PO PRN (21:30)
[2024-05-03] MEDS ORDERED: CloNIDine HCL 0.1 MG TABLET PO PRN (21:30)
[2024-05-03] MEDS ORDERED: BENZOCAINE/MENTHOL LOZENGE PO PRN (21:30)
[2024-05-03] MEDS ORDERED: ONDANSETRON HCL 4 MG TABLET PO PRN (21:30)
[2024-05-03] MEDS ORDERED: BACITRACIN 28 GM OINTMENT TP PRN (21:30)
[2024-05-03 23:21] VITALS: TEMP 97.7
[2024-05-04 08:00] VITALS: TEMP 97.8
[2024-05-04 08:17] VITALS: BP 129/72; PULSE 94; RESP 18; TEMP 97.8; O2SAT 98
[2024-05-04] MEDS: FAMOTIDINE 20 MG TABLET PO SCH (08:49)
[2024-05-04 20:24] VITALS: BP 115/75; PULSE 61; RESP 18; TEMP 97.2; O2SAT 98
[2024-05-04 21:11] VITALS: TEMP 97.2
[2024-05-05 08:18] VITALS: BP 118/64; PULSE 74; RESP 18; TEMP 98.2; O2SAT 98
[2024-05-05] MEDS ORDERED: PNEUMOCOCCAL VACCINE POLYVALENT 0.5 ML SYRINGE [PPSV23] IM. ONE (12:15)
[2024-05-05 13:56] VITALS: TEMP 97.6
[2024-05-05 20:53] VITALS: BP 125/75; PULSE 85; RESP 18; TEMP 98.3; O2SAT 98
[2024-05-06 08:56] VITALS: BP 134/82; PULSE 85; RESP 18; TEMP 98.1; O2SAT 98
[2024-05-06 20:39] VITALS: BP 152/81; PULSE 83; RESP 17; TEMP 98.1; O2SAT 99
[2024-05-07 08:17] VITALS: BP 132/66; PULSE 92; RESP 18; TEMP 98; O2SAT 100
[2024-05-07 08:19] LABS: APPEARANCE,URINE CLEAR (CLEAR); BILIRUBIN,URINE NEGATIVE (NEGATIVE); COLOR,URINE COLORLESS (YELLOW); GLUCOSE, URINE (UA) NEGATIVE (NEGATIVE); KETONES,URINE NEGATIVE (NEGATIVE); LEUKOCYTE ESTERASE ,URINE NEGATIVE (NEGATIVE); NITRATE,URINE NEGATIVE (NEGATIVE); OCCULT BLOOD,URINE NEGATIVE (NEGATIVE); PH,URINE 6.5 (5.0-8.0); PROTEIN,URINE NEGATIVE (NEGATIVE); SPECIFIC GRAVITIY, URINE 1.006 (1.003-1.030); UROBILINOGEN,URINE <=1.0 mg/dL (<=1.0)
[2024-05-07 08:37] VITALS: RESP 18
[2024-05-07] MEDS: IBUPROFEN 600 MG TABLET PO PRN (08:37)
[2024-05-07 09:37] VITALS: RESP 17
[2024-05-07] MEDS: TUBERCULIN, PURIFIED PROTEIN DERIVATIVE 5 TU/0.1 ML SYRINGE ID ONE (16:07)
[2024-05-07 20:05] VITALS: BP 136/75; PULSE 71; RESP 18; TEMP 98.2; O2SAT 100
[2024-05-08 08:38] VITALS: BP 120/58; PULSE 75; RESP 18; TEMP 98.2; O2SAT 98
[2024-05-08] MEDS: NICOTINE 21 MG/24 HOUR PATCH TD PRN (09:01)
[2024-05-08 20:00] VITALS: BP 132/76; PULSE 90; RESP 16; TEMP 97.7; O2SAT 95
[2024-05-09] MEDS: -PHARMACY VACCINE NOTE- MISC ONE (08:00)
[2024-05-09 08:56] VITALS: BP 125/61; PULSE 84; RESP 18; TEMP 90.3; O2SAT 98
[2024-05-09] MEDS: ALBUTEROL SULFATE HFA 90 MCG/PUFF 8 GM INHALER IH PRN (15:08)
[2024-05-09 20:17] VITALS: BP 125/67; PULSE 89; RESP 18; TEMP 98.3; O2SAT 97
[2024-05-10 08:16] VITALS: BP 122/62; PULSE 82; RESP 18; TEMP 97.4; O2SAT 98
[2024-05-10] MEDS: OLANZapine 10 MG TABLET PO ONE (12:13)
[2024-05-10] MEDS: OLANZapine 10 MG TABLET PO SCH (20:09)
[2024-05-10] MEDS: ZOLPIDEM TARTRATE 10 MG TABLET PO PRN (20:09)
[2024-05-10 20:25] VITALS: BP 116/92; PULSE 77; RESP 18; TEMP 97.6; O2SAT 96
[2024-05-11 09:52] VITALS: BP 130/61; PULSE 79; RESP 16; TEMP 97.9; O2SAT 99
[2024-05-11 20:21] VITALS: BP 122/77; PULSE 78; RESP 18; TEMP 98; O2SAT 96
[2024-05-12 08:11] VITALS: BP 107/60; PULSE 68; RESP 18; TEMP 97.8; O2SAT 99
[2024-05-12 21:31] VITALS: BP 128/69; PULSE 87; RESP 20; TEMP 97.2; O2SAT 99
[2024-05-13 08:31] VITALS: BP 118/67; PULSE 83; RESP 17; TEMP 97.8; O2SAT 98
[2024-05-13 20:43] VITALS: BP 115/70; PULSE 100; RESP 20; TEMP 97.7; O2SAT 100
[2024-05-14 08:40] VITALS: BP 113/60; PULSE 77; RESP 18; TEMP 97.7; O2SAT 99
[2024-05-14 20:00] VITALS: BP 118/53; PULSE 68; RESP 17; TEMP 97.9; O2SAT 99
[2024-05-15 08:40] VITALS: BP 107/63; PULSE 76; RESP 15; TEMP 98.3; O2SAT 98
[2024-05-15 20:33] VITALS: BP 120/71; PULSE 95; RESP 18; TEMP 97.7; O2SAT 100
[2024-05-16 08:26] VITALS: RESP 18
[2024-05-16 20:10] VITALS: BP 120/77; PULSE 79; RESP 17; TEMP 97; O2SAT 100
[2024-05-17 08:24] VITALS: BP 129/74; PULSE 75; RESP 17; TEMP 96.9; O2SAT 98
[2024-05-17] MEDS ORDERED: FAMO20 PO (10:50)
[2024-05-17] MEDS ORDERED: OLAN10TA74 PO (10:50)
== END 2024-05-17 18:18 | disposition home or self-care (01) | DRG 750 ==
LOC: EMS 17:21 → B2S 22:36
PROVIDERS: ADMIT Psychiatry & Neurology Psychiatry; ATTEND Psychiatry & Neurology Psychiatry
PROC: GZHZZZZ Group Psychotherapy (ICD-10-PCS; principal; 2024-05-02)
PROC: GZ52ZZZ Individual Psychotherapy, Cognitive (ICD-10-PCS; 2024-05-02)
DX: F25.1 Schizoaffective disorder, depressive type (principal); R45.851 Suicidal ideations; F12.10 Cannabis abuse, uncomplicated; J45.909 Unspecified asthma, uncomplicated; K21.9 Gastro-esophageal reflux disease without esophagitis; Z20.822 Contact with and (suspected) exposure to COVID-19; F17.210 Nicotine dependence, cigarettes, uncomplicated; D64.9 Anemia, unspecified; F15.10 Other stimulant abuse, uncomplicated; Z91.51 Personal history of suicidal behavior; Z79.899 Other long term (current) drug therapy
CPT/HCPCS: 71046; 80048; 80307; 81003; 85025; 99285; G0480; J3535; 36415-L1; 36415-TC